=== PATIENT | female | born 1965 | race Asian ===

== ENCOUNTER 2019-05-07 12:55 | Emergency (ER) | payer BC ==
[~2019-05-07] VITALS: Ht 149.9 cm; Wt 64.4 kg
[2019-05-07 13:08] VITALS: Ht 149.9 cm; Wt 64.4 kg
[2019-05-07 16:44] VITALS: BP 141/89
== END 2019-05-07 16:44 | disposition home or self-care (01) ==
LOC: ED 12:55
DX: B34.9 Viral infection, unspecified (principal); K21.9 Gastro-esophageal reflux disease without esophagitis
CPT/HCPCS: 87804